=== PATIENT | female | born 1980 | race African-American/Black ===

== ENCOUNTER 2020-08-31 11:48 | Observation (INO) ==
[2020-08-31] MEDS ORDERED: ALBUTEROL/IPRATROPIUM 3 ML NEB RESP TX STA (12:55)
[2020-08-31] MEDS ORDERED: methylPREDNISolone SOD SUC 125 MG/2 ML VIAL IV STA (12:55)
[2020-08-31] MEDS ORDERED: ALBUTEROL NEB SOLN 5 MG/ML 20 ML/BOTTLE CONT NEB SCH (13:00)
[2020-08-31 13:20] LABS: Basophils % 0.6 % (0.0-0.8); Eosinophils # 0.6 10*3/uL (0.0-0.87); Eosinophils % 9.1 % (0.00-10.9); Hematocrit 34.8 VOL% (35.7-47.0); Hemoglobin 10.6 GM/DL (12.0-16.0); Immature Granulocytes % 0.1 %; Immature Granulocytes Absolute 0.01 #; Lymphocytes # 2.3 10*3/uL (1.4-4.0); Lymphocytes % 32.9 % (21.3-54.2); Mean Corpuscular HGB Conc 30.5 GM/DL (32-36); Mean Corpuscular Volume 89.2 FL (87-102); Mean Platelet Volume 14.6 FL (9.6-12.0); Monocytes % 7.3 % (1.7-12.7); Platelet Count 158 T/CUMM (130-400); Red Cell Distribution Width 13.6 % (9.3-17.3); White Blood Count 6.8 T/CUMM (4-12)
[2020-08-31 13:53] LABS: Albumin 3.9 G/DL (3.4-5.0); Bilirubin,Total 1.2 MG/DL (0.2-1.0); Calcium 8.6 MG/DL (8.5-10.1); Osmolality,Calculated 272.8 MOS/KG (273-304); Potassium 3.9 MMOL/L (3.5-5.1); Total Protein 8.4 G/DL (6.4-8.3)
[2020-08-31 13:54] LABS: Eosinophils 4 % (0-10); Lymphocytes 24 % (20-55); Platelet Estimate Adequate; Segmented Neutrophils 66 % (50-85); Total Cells Counted 100
[2020-08-31] MEDS ORDERED: hydrALAZINE 20 MG/1 ML VIAL ONE (14:50)
[2020-08-31] MEDS ORDERED: hydrALAZINE 20 MG/1 ML VIAL IV STA (14:56)
[2020-08-31] MEDS ORDERED: ALBUTEROL/IPRATROPIUM 3 ML NEB RESP TX PRN (15:13)
[2020-08-31] MEDS ORDERED: AZITHROMYCIN INJ 500 MG in SODIUM CHLORIDE 0.9% 250 ML IV SCH (15:30)
[2020-08-31] MEDS ORDERED: GLUCAGON 1 MG VIAL IM PRN (15:33)
[2020-08-31] MEDS ORDERED: hydrALAZINE 20 MG/1 ML VIAL IV PRN (15:33)
[2020-08-31] MEDS ORDERED: ONDANSETRON 4 MG/2 ML VIAL IV PRN (15:33)
[2020-08-31] MEDS ORDERED: DEXTROSE 50% 25 GM/50 ML VIAL IV PRN (15:33)
[2020-08-31] MEDS ORDERED: ACETAMINOPHEN 325 MG TABLET PO PRN (15:33)
[2020-08-31 16:14] LABS: Thyroid Stimulating Hormone 5.04 uIU/ml (0.358-3.74)
[2020-08-31] MEDS ORDERED: ENOXAPARIN 40 MG/0.4 ML SYRINGE SUBCUT SCH (21:00)
[2020-09-01 05:54] LABS: Basophils % 0.1 % (0.0-0.8); Hematocrit 35.9 VOL% (35.7-47.0); Hemoglobin 11.7 GM/DL (12.0-16.0); Immature Granulocytes % 0.8 %; Lymphocytes # 1.5 10*3/uL (1.4-4.0); Lymphocytes % 11.8 % (21.3-54.2); Mean Corpuscular HGB Conc 32.6 GM/DL (32-36); Mean Corpuscular Volume 85.7 FL (87-102); Monocytes % 2.7 % (1.7-12.7); Neutrophils % 84.6 % (38.7-73.9); Platelet Count 168 T/CUMM (130-400); Red Blood Count 4.19 MC/CUMM (3.8-5.5); Red Cell Distribution Width 13.4 % (9.3-17.3); White Blood Count 12.8 T/CUMM (4-12)
[2020-09-01 06:24] LABS: Osmolality,Calculated 268.4 MOS/KG (273-304); Potassium 4.4 MMOL/L (3.5-5.1)
[2020-09-01] MEDS ORDERED: methylPREDNISolone SOD SUC 40 MG/1 ML VIAL IV SCH (09:00)
[2020-09-01 12:42] VITALS: BP 130/74
== END 2020-09-01 15:10 | disposition home or self-care (01) ==
LOC: N.ED 11:48 → N.TELEN 11:48 → SUATTDRO 15:13 → N.TELEN 15:40
PROVIDERS: ADMIT Emergency Medicine; ATTEND Internal Medicine

== ENCOUNTER 2021-09-16 09:00 | Observation (INO) ==
[2021-09-16] MEDS ORDERED: ALBUTEROL 2.5 MG/3 ML NEB RESP TX STA (09:22)
[2021-09-16] MEDS ORDERED: methylPREDNISolone SOD SUC 125 MG/2 ML VIAL IV STA (09:22)
[2021-09-16 09:34] LABS: Basophils % 0.4 % (0.0-0.8); Eosinophils # 0.5 10*3/uL (0.0-0.87); Eosinophils % 6.8 % (0.00-10.9); Hematocrit 35.6 VOL% (35.7-47.0); Hemoglobin 11.2 GM/DL (12.0-16.0); Immature Granulocytes % 0.4 %; Immature Granulocytes Absolute 0.03 #; Lymphocytes # 2.4 10*3/uL (1.4-4.0); Mean Corpuscular HGB Conc 31.5 GM/DL (32-36); Mean Corpuscular Volume 86.4 FL (87-102); Mean Platelet Volume 14.6 FL (9.6-12.0); Monocytes % 7.6 % (1.7-12.7); Neutrophils % 53.8 % (38.7-73.9); Platelet Count 155 T/CUMM (130-400); Red Blood Count 4.12 MC/CUMM (3.8-5.5); Red Cell Distribution Width 13.4 % (9.3-17.3); White Blood Count 7.8 T/CUMM (4-12)
[2021-09-16 09:52] LABS: Albumin 3.7 G/DL (3.4-5.0); Bilirubin,Total 0.5 MG/DL (0.20-1.00); Calcium 8.3 MG/DL (8.5-10.1); Osmolality,Calculated 275.7 MOS/KG (273-304); Potassium 3.6 MMOL/L (3.5-5.1); Total Protein 8.3 G/DL (6.4-8.2)
[2021-09-16] MEDS ORDERED: cefTRIAXone 1,000 MG in SODIUM CHLORIDE 0.9% 100 ML IV STA (10:03)
[2021-09-16] MEDS ORDERED: GLUCAGON 1 MG VIAL IM PRN (10:49)
[2021-09-16] MEDS ORDERED: ONDANSETRON 4 MG/2 ML VIAL IV PRN (10:49)
[2021-09-16] MEDS ORDERED: ALBUTEROL 2.5 MG/3 ML NEB RESP TX PRN (10:58)
[2021-09-16] MEDS ORDERED: DEXTROSE 10% 250 ML BAG IV PRN (11:00)
[2021-09-16] MEDS: ENOXAPARIN 40 MG/0.4 ML SYRINGE SUBCUT SCH (11:35)
[2021-09-16] MEDS ORDERED: hydrALAZINE 20 MG/1 ML VIAL IV PRN (12:01)
[2021-09-16 12:31] LABS: % Iron Saturation 14.6 % (18-50)
[2021-09-16] MEDS: ALBUTEROL/IPRATROPIUM 3 ML NEB RESP TX SCH ×2 (12:58→19:32)
[2021-09-16] MEDS ORDERED: INFLUENZA VIRUS VACCINE 0.5 ML SYRINGE IM ONE (14:12)
[2021-09-16] MEDS: methylPREDNISolone SOD SUC 40 MG/1 ML VIAL IV SCH (17:10)
[2021-09-16] MEDS: BUDESONIDE/FORMOTEROL 160-4.5 INHALER 6 GM INH SCH (21:46)
[2021-09-17] MEDS: ALBUTEROL/IPRATROPIUM 3 ML NEB RESP TX SCH ×2 (00:42→07:45)
[2021-09-17] MEDS: methylPREDNISolone SOD SUC 40 MG/1 ML VIAL IV SCH ×2 (01:25→08:42)
[2021-09-17 05:23] LABS: Calcium 8.6 MG/DL (8.5-10.1); Osmolality,Calculated 273.2 MOS/KG (273-304)
[2021-09-17] MEDS ORDERED: BENZOCAINE/MENTHOL LOZENGE 18/BOX PO PRN (07:45)
[2021-09-17] MEDS: ENOXAPARIN 40 MG/0.4 ML SYRINGE SUBCUT SCH ×2 (08:41→10:18)
[2021-09-17] MEDS: BUDESONIDE/FORMOTEROL 160-4.5 INHALER 6 GM INH SCH (08:42)
[2021-09-17] MEDS ORDERED: PANTOPRAZOLE 40 MG TABLET PO SCH (09:00)
[2021-09-17] MEDS ORDERED: amLODIPine 10 MG TABLET PO SCH (09:00)
[2021-09-17] MEDS ORDERED: cefTRIAXone 1,000 MG in SODIUM CHLORIDE 0.9% 100 ML IV SCH (10:00)
[2021-09-17 10:47] LABS: Basophils # 0.1 # (0.0-0.1); Basophils % 0.5 % (0.2-1.0); Hematocrit 34.8 VOL% (37.0-47.0); Hemoglobin 11.1 GM/DL (12.0-16.0); Lymphocytes # 1.1 # (1.3-2.9); Lymphocytes % 8.8 % (20.5-45.5); Mean Corpuscular HGB Conc 31.9 GM/DL (32-36); Mean Corpuscular Volume 86.1 FL (81-99); Monocytes % 2.5 % (5.5-11.7); Neutrophils % 87.7 % (43.0-65.0); Platelet Count 156 T/CUMM (130-400); Red Blood Count 4.04 MC/CUMM (4.20-5.40); Red Cell Distribution Width 13.7 % (11.5-15.5); White Blood Count 12.6 T/CUMM (4.8-10.8)
[2021-09-17 12:14] VITALS: BP 148/62
== END 2021-09-17 11:45 | disposition home or self-care (01) ==
LOC: N.ED 09:00 → N.EDINP 09:00 → SUATTDRO 10:49 → N.EDINP 13:48 → N.3E 14:06
PROVIDERS: ADMIT Internal Medicine; ATTEND Internal Medicine